=== PATIENT | female | born 2000 | race African-American/Black ===

== ENCOUNTER 2021-12-11 09:45 | Emergency (ER) | payer MEDICAID, SELFPAY ==
[2021-12-11] VITALS (19 sets, daily range): BP systolic 90–112; BP diastolic 50–80; PULSE 65–88; RESP 13–19; TEMP 36.4; O2SAT 86–100
--- NOTE | ~2021-12-11 | XR_ITS ---
EXAMINATION: XR chest 2V DATE: 12/11/2021 12:14 INDICATION: Mild chest pain. TECHNIQUE: Frontal and lateral views of the chest were obtained. COMPARISON: None. FINDINGS: The chest demonstrates clear lungs without pneumonia, pleural effusion, or pneumothorax. Th e heart size is normal. IMPRESSION: 1. No acute cardiopulmonary disease. Reviewed, dictated and finalized at location A.
--- NOTE | 2021-12-11 10:17 | ECG_ITS ---
Measurements Intervals [place] Rate: 68 P: 47 PA: 121 QRS: 58 QRSD: 79 T: 58 QT: 374 QTc: 398 Interpretive Statements SINUS RHYTHM INCOMPLETE RIGHT BUNDLE BRANCH BLOCK NO PREVIOUS ECG AVAILABLE FOR COMPARISON Electronically Signed On 12-11-2021 17:25:22 CDT by Edson Rankin M.D.
[2021-12-11] MEDS: BELLADONNA ALK/PHENOB ELIX 10 ML, MAG HYDROX/ALUMINUM HYD/SIMETH 30 ML, LIDOCAINE HCL 2... PO (11:50)
--- NOTE | 2021-12-11 11:51 | ED.CHESTPAIN ---
HPI - Chest Pain General Chief Complaint: Chest Pain <JAMI Hugo Last Filed: 12/11/21 14:55> Stated Complaint: chest pain <JAMI Hugo Last Filed: 12/11/21 14:55> Time Seen by Provider: 12/11/21 11:03 <JAMI Hugo Last Filed: 12/11/21 14:55> History of Present Illness HPI narrative: Patient is a 21-year-old female here for evaluation of chest pain. Patient states that chest pain is in the center of her chest and also occasionally moves down her right arms. Came when she when she was at rest yesterday. She states that she has a history of similar previous pain, was attributed to costochondritis in the past. Denies any difficulty breathing, leg swelling, fevers or chills. No nausea, vomiting, lower abdominal pain. She has not attempted any medication for the pain. She recently started control pills last week. No leg swelling or recent trips or long travels. <JAMI Hugo Last Filed: 12/11/21 14:55> Related Data Allergies/Adverse Reactions: Allergies Allergy/AdvReac Type Severity Reaction Status Date / Time No Known Allergies Allergy Verified 12/11/21 10:20 <JAMI Hugo Last Filed: 12/11/21 14:55> Review of Systems Review of Systems: Gen.: Denies fevers or chills Eyes: Denies eye pain or visual change ENT: Denies congestion Respiratory: Denies shortness of breath or cough CV: Reports chest pain. GI: Denies abdominal pain nausea, emesis or diarrhea denies burning, urgency, frequency or hematuria Musculoskeletal: Denies back pain or muscle pain Neuro: Denies numbness, tingling, weakness or focal weakness Skin: Denies rash Except as documented, all other systems reviewed and negative <JAMI Hugo Last Filed: 12/11/21 14:55> Exam Narrative: APPEARANCE: Well appearing, no pain in distress, well-nourished. Head: Normocephalic and atraumatic. EYES: PERRLA/EOMI, conjunctivae clear NOSE: No nasal drainage EARS: External ear normal in appearance THROAT: Oropharynx is clear. Mucous membranes are moist. NECK: Supple. No adenopathy, no masses. RESPIRATORY: Airway patent, respirations nonlabored. Clear to auscultation bilaterally, no rales, rhonchi, wheezing. CARDIOVASCULAR: Regular rate and rhythm without murmurs, rubs, or gallops. ABDOMINAL: Normoactive bowel sounds. Soft, nontender, nondistended. No rebound tenderness or guarding. MUSCULOSKELETAL: Reproducible chest pain on palpation of the anterior thorax. Extremities are warm and well-perfused. Moves all extremities well. No edema. NEURO: Normal speech. No focal neurologic deficits. SKIN: Skin is warm and dry. No rashes. PSYCHIATRIC: Normal affect/mood.. <Madison Rios PA-C - Last Filed: 12/11/21 14:55> Course Vital Signs Vital signs: Vital Signs Temperature 97.6 F 12/11/21 10:17 Pulse Rate 73 12/11/21 10:17 Respiratory Rate 18 12/11/21 10:17 Blood Pressure 112/70 12/11/21 10:17 Pulse Oximetry 100 12/11/21 10:17 Oxygen Delivery Room Air 12/11/21 10:17 Temperature 97.6 F 12/11/21 10:17 Pulse Rate 67 12/11/21 13:46 Respiratory Rate 19 12/11/21 13:46 Blood Pressure 112/50 L 12/11/21 13:46 Pulse Oximetry 99 12/11/21 13:46 Oxygen Delivery Room Air 12/11/21 10:17 <Madison Rios PA-C - Last Filed: 12/11/21 14:55> Vital Signs Temperature 97.6 F 12/11/21 10:17 Pulse Rate 73 12/11/21 10:17 Respiratory Rate 18 12/11/21 10:17 Blood Pressure 112/70 12/11/21 10:17 Pulse Oximetry 100 12/11/21 10:17 Oxygen Delivery Room Air 12/11/21 10:17 Temperature 97.6 F 12/11/21 10:17 Pulse Rate 67 12/11/21 13:46 Respiratory Rate 19 12/11/21 13:46 Blood Pressure 112/50 L 12/11/21 13:46 Pulse Oximetry 99 12/11/21 13:46 Oxygen Delivery Room Air 12/11/21 10:17 <Destin Bocanegra, DO - Last Filed: 12/11/21 18:53> [facility] -
[2021-12-11 13:01] LABS: Basophils Absolute Auto 0.1 K/mm3 (0.0-0.1); Basophils Percent Auto 1.1 % (0.2-1.2); Eosinophils Percent Auto 0.5 % (0-4.4); Hematocrit 33.3 % (37.0-47.0); Hemoglobin 11.2 g/dL (12.0-15.0); Immature Granulocyte Absolute 0.01 K/mm3 (0.00-0.031); Immature Granulocyte Percent A 0.2 % (0-0.5); Lymphocytes Percent Auto 45.2 % (18.3-44.2); Mean Corpuscular HGB Conc 33.6 g/dl (32-36); Mean Corpuscular Hemoglobin 23.4 pg (26-34); Mean Corpuscular Volume 69.7 fl (80-100); Mean Platelet Volume 10.1 fl (7.4-10.4); Monocytes Absolute Auto 0.5 K/mm3 (0.1-0.6); Monocytes Percent Auto 8.1 % (2.6-8.5); Neutrophils Percent Auto 44.9 % (45.5-73.1); Platelet Count Result 293 k/mm3 (150-375); Red Blood Count 4.78 M/mm3 (4.2-5.4); Red Cell Distribution Width 14.9 % (11.5-14.5); White Blood Count 6.6 K/mm3 (4.5-10.0)
[2021-12-11 13:33] LABS: Alanine Aminotransferase 15 U/L (6-35); Albumin Level 4.7 g/dL (3.5-5.1); Alkaline Phosphatase 68 U/L (38-126); Anion Gap 8 mmol/L (8-16); Aspartate Amino Transferase 26 U/L (14-36); Bilirubin,Total 0.6 mg/dL (0.2-1.3); Blood Urea Nitrogen 10 mg/dL (7-17); Calcium 9.1 mg/dL (8.4-10.2); Carbon Dioxide 26 mmol/L (22-30); Chloride 102 mmol/L (98-107); Estimated CRCL calculation 95 ml/min; Estimated Glomerular Filt Rate > 60; Glucose 87 mg/dL (65-110); Potassium 3.8 mmol/L (3.4-5.0); Sodium 136 mmol/L (137-145)
[2021-12-11 13:35] LABS: Platelet Estimate Adequate (Adequate)
[2021-12-11 13:36] LABS: Anisocytosis 1+ (NORMAL); Hypochromasia 1+ (NORMAL); Schistocytes None Seen (NORMAL); Target Cells 2+ (NORMAL)
[2021-12-11 13:42] LABS: D Dimer < 0.27 ug/mL (<0.48)
[2021-12-11 13:44] LABS: Troponin I < 0.012 ng/mL (0.000-0.034)
== END 2021-12-11 14:26 | disposition home or self-care (01) ==
PROVIDERS: Physician Assistant; Emergency Provider Emergency Medicine
DX: K21.9 Gastro-esophageal reflux disease without esophagitis (principal); I45.10 Unspecified right bundle-branch block
CPT/HCPCS: 36415; 71046; 80053; 84484; 85025; 85380; 93005; 99284; A9270

== ENCOUNTER 2022-02-04 04:24 | Emergency (ER) | payer MEDICAID, SELFPAY ==
[2022-02-04 04:24] VITALS: BP 127/67; PULSE 82; RESP 18; TEMP 36.4; O2SAT 100
--- NOTE | 2022-02-04 05:06 | ED.GENADULT ---
HPI - General Adult General Chief complaint: Unspecified Time Seen by Provider: 02/04/22 05:06 Source: patient Mode of arrival: ambulatory Limitations: no limitations History of Present Illness HPI narrative: Patient is a 21-year-old female presenting to the emergency department for evaluation of aching muscle pain in her shoulders over the past 4 weeks. Patient reports the pain has been intermittent and has been in the shoulders over the past week, but before that noticed it in her lower extremities. Patient denies any fever, chills, nausea, vomiting. She denies chest pain or shortness of breath. She denies palpitations. She denies focal weakness or numbness. She denies fall or injury. She denies headache or vision changes. Patient denies difficulty with ambulation. She denies rash or bruising. Patient denies any history of known autoimmune disease. She denies weight loss. She denies recent sick contact. She denies rhinorrhea, congestion, sore throat. No recent viral infection such as COVID or influenza. Patient has not tried any anti-inflammatory medication for the pain or other [id number] remedies. Related Data Allergies Allergy/AdvReac Type Severity Reaction Status Date / Time No Known Allergies Allergy Verified 12/11/21 10:20 Review of Systems Review of Systems: CONSTITUTIONAL: Denies fever, chills, or sweats. EYES: Denies visual changes, redness, or discharge. ENT: Denies rhinorrhea, congestion, sore throat, or otalgia. CARDIOVASCULAR: Denies chest pain, palpitations, or edema. RESPIRATORY: Denies cough or dyspnea. GASTROINTESTINAL: Denies abdominal pain, nausea, vomiting, or diarrhea. GENITOURINARY: Denies dysuria or hematuria. SKIN: Denies rash or itching. MUSCULOSKELETAL: Denies back pain, joint pain, reports myalgias NEUROLOGIC: Denies headache, numbness, or weakness. [facility] Past Medical History Medical History (Updated 02/04/22 @ 06:05 by Evita Grimaldo MD) No pertinent past medical history Surgical History Surgical History (Updated 02/04/22 @ 06:05 by Evita Grimaldo MD) No pertinent past surgical history Social History Social History (Updated 02/04/22 @ 06:06 by Evita Grimaldo MD) Smoking status: Never smoker Alcohol intake: never Substance use: never Gender identity (if verbalized by the patient): Female Exam Narrative: GENERAL: Awake, alert, conversant HEAD: Normocephalic, atraumatic. EYES: PERRLA and EOMI. ENT: Nares clear, no rhinorrhea or epistaxis. Mucous membranes moist. NECK: Supple. No cervical lymphadenopathy. CHEST: No respiratory distress, breathing even and non labored, no chest wall tenderness HEART: Regular rate, sinus rhythm ABDOMEN:Non distended, non tender EXTREMITIES: Normal range of motion. No edema. SKIN: Warm, dry, no rash. No petechiae, no urticaria, no ecchymosis. NEURO:No focal deficits. Alert and oriented x3.EOMs intact without nystagmus. No facial droop/asymmetry noted bilaterally. Grimace intact. Intact sensation in face. Hearing intact bilaterally. Shoulder shrug intact. Strength 5/5 bilateral upper extremities. Strength 5/5 bilateral lower extremities. Reflexes 2+ patellar. Ambulatory with a narrow base, steady gait, no ataxia. Course Vital Signs Vital signs: Vital Signs Temperature 36.4 C L 02/04/22 04:24 Pulse Rate 82 02/04/22 04:24 Respiratory Rate 18 02/04/22 04:24 Blood Pressure 127/67 02/04/22 04:24 Pulse Oximetry 100 02/04/22 04:24 Oxygen Delivery Room Air 02/04/22 04:24 Temperature 36.4 C L 02/04/22 04:24 Pulse Rate 82 02/04/22 04:24 Respiratory Rate 18 02/04/22 04:24 Blood Pressure 127/67 02/04/22 04:24 Pulse Oximetry 100 02/04/22 04:24 Oxygen Delivery Room Air 02/04/22 04:24 Medical Decision Making [facility] Narrative Medical decision making narrative: Patient presenting for evaluation of intermittent myalgias to upper and lower extremities. Mostly focused in the bilatera
== END 2022-02-04 06:15 | disposition home or self-care (01) ==
PROVIDERS: Emergency Provider Emergency Medicine
DX: M79.10 Myalgia, unspecified site (principal)
CPT/HCPCS: 99283